=== PATIENT | male | born 1960 | race Hispanic/Latino ===

== ENCOUNTER 2018-10-20 15:55 | Outpatient (CLI) | payer OTHER ==
--- NOTE | 2018-10-20 16:34 | RAD ---
EXAM: XR Lumbar Spine Min 4 View PROVIDED CLINICAL HISTORY: Lumbar radiculopathy. COMPARISON: None FINDINGS: There are 5 nonrib-bearing lumbar-type vertebral bodies. The vertebral body heights and intervertebra l disc spaces are within normal limits. Scattered osteophytes are seen within the lumbar spine and greater in the upper lumbar spine. No fracture or subluxation is identified. Vascular calcifications are seen in the abdominal aorta. IMPRESSION: Mild degenerative changes, but no fracture or subluxation is seen involving lumbar spine.
--- NOTE | 2018-10-20 16:53 | CT ---
Exam: CT lumbar spine without contrast HISTORY: Low back pain. Lumbar radiculopathy. FINDINGS: There is stranding of the central abdominal mesentery, nonspecifically evaluated. Dedicated abdomen and pelvic CT is recommended. Visualized aorta has a normal caliber. Symmetric attenuation of the psoas muscles. No retroperitoneal mass, lymphadenopathy or hematoma There are 5 lumbar type vertebral bodies. There is pseudoarthrosis of the left L5 level with the sacr um. There is a vacuum joint phenomenon with regards to the pseudoarthrosis. Lumbar spine vertebral body height is maintained. No fracture. No spondylolisthesis or spondylolysis. Limited evaluation the contents of the central spinal canal and neural foramina due to technique T12-L1: No significant central canal stenosis or neural foraminal narrowing L1-L2: No significant central canal stenosis or neural foraminal narrowing L2-L3: Broad-based disc bulge, ligament flavum thickening and facet hypertrophy result in mild to mod erate central canal stenosis. Right neural foramen is patent. Mild left foraminal narrowing L3-L4: Broad-based disc bulge, ligament flavum thickening and facet hypertrophy result in mild centra l canal stenosis. Mild right and moderate to severe left foraminal narrowing. L3-4-L5: Broad-based disc bulge results in at least mild central canal stenosis. Disc material abuts but does not obscure the traversing L5 nerve root. Mild right foraminal narrowing. Left neural foramen is patent L5-S1: No significant central canal stenosis or neural foraminal narrowing. IMPRESSION: 1. No evidence of a lumbar spine fracture. 2. 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 Mild to moderate central canal stenosis at L2-L3. 4. Moderate to severe left foraminal narrowing at L3-L4.
== END 2018-10-20 15:56 | disposition home or self-care (01) ==
LOC: TBSIIMAG 15:55
PROVIDERS: ATTEND Surgery
DX: M47.26 Other spondylosis with radiculopathy, lumbar region (principal); S32.059A Unspecified fracture of fifth lumbar vertebra, initial encounter for closed fracture; M48.061 Spinal stenosis, lumbar region without neurogenic claudication; S32.10XA Unspecified fracture of sacrum, initial encounter for closed fracture
CPT/HCPCS: 72110; 72131